=== PATIENT | female | born 1990 | race African-American/Black ===

== ENCOUNTER → 2019-08-02 | Outpatient (CLI) | payer OTHER ==
--- NOTE | 2019-08-02 15:24 | REP ---
OB ULTRASOUND: Real-time sonographic evaluation of the gravid uterus performed. There is a single living intrauterine gestation with an estimated gestational age 34 weeks 0 days, EDC 09/13/2019. There are no prior studies for comparison. Biometry and Growth: BPD 79 mm = 31 weeks 5 days, 17th percentile HC 308 mm = 34 weeks 2 days, 55th percentile AC 297 mm = 33 weeks 5 days, 46th percentile FL 70 mm = 35 weeks 5 days, 75th percentile HC/AC ratio 1.03 within normal range of 0.95 to 1.13. Estimated weight 2356 grams, 49th percentile. SEEN/GROSSLY UNREMARKABLE Lateral ventricles Yes Posterior fossa No Upper lip Yes Four-chamber heart Yes LVOT Yes RVOT Yes Stomach Yes Cord insertion Yes Three vessel cord Yes Kidneys Yes Bladder Yes Spine No Cervical length: Closed and measures 2.4 cm in length. heart rate: 135 beats per minute. position: Vertex. Placenta: Anterior and grade 2 with no previa or abruption. Amniotic fluid: Within normal limits. HENNY 18.0 within normal range of 8.1 to 24.8. S/D ratio 2.47 within normal range of 2.0 to 3.0. RI: 0.59 within normal range of 0.59 to 0.75. Note is made of an anterior fibroid which measures approximately 6.2 x 3.4 x 6.8 cm. Unreviewed
== END ==
LOC: M RAD 12:32
PROVIDERS: ATTEND Advanced Practice Midwife
DX: O34.13 Maternal care for benign tumor of corpus uteri, third trimester (principal); Z3A.34 34 weeks gestation of pregnancy

== ENCOUNTER → 2019-08-02 | Outpatient (CLI) | payer OTHER ==
[2019-08-02 18:27] LABS: BASO % 0.2 % (0.0-1.0); EOS % 0.7 % (0.0-3.0); HEMATOCRIT 39.3 % (36.0-47.0); HEMOGLOBIN 12.9 g/dl (12.0-15.5); LYMPH # 1.2 10^3/uL (1.5-5.0); LYMPH % 20.2 % (24.0-44.0); MEAN CORPUSCULAR HEMOGLOBIN 30.1 pg (27.0-33.0); MEAN CORPUSCULAR HGB CONC 32.8 g/dl (32.0-36.5); MEAN CORPUSCULAR VOLUME 91.6 fl (80.0-96.0); MONO # 0.5 10^3/uL (0.0-0.8); MONO % 9.2 % (0.0-5.0); NEUTROPHILS % 69.2 % (36.0-66.0); PLATELET COUNT, AUTOMATED 153 10^3/uL (150-450); RED BLOOD COUNT 4.29 10^6/uL (4.00-5.40); WHITE BLOOD COUNT 5.7 10^3/uL (4.0-10.0)
[2019-08-03 13:12] LABS: HEPATITIS C VIRUS ABY INDEX 0.1 INDEX (<0.8); HIV 1&2 SCREEN CENTAUR NEGATIVE (NEGATIVE)
== END ==
LOC: M PLALAB 13:43
PROVIDERS: ATTEND Advanced Practice Midwife
DX: Z34.80 Encounter for supervision of other normal pregnancy, unspecified trimester (principal)

== ENCOUNTER → 2019-08-10 | Outpatient (REF) | payer OTHER | LOC: M SFHCWAGY 16:46 | PROVIDERS: ATTEND Advanced Practice Midwife | DX: Z34.93 Encounter for supervision of normal pregnancy, unspecified, third trimester (principal); Z3A.00 Weeks of gestation of pregnancy not specified ==

== ENCOUNTER 2019-09-08 12:10 | Inpatient (IN) | payer OTHER ==
[2019-09-08] VITALS (25 sets, daily range): BP systolic 100–137; BP diastolic 57–81
[~2019-09-08] VITALS: Ht 160 cm; Wt 79.4 kg
[2019-09-08] MEDS ORDERED: PRENTAB9 PO (12:19)
[2019-09-08 13:40] LABS: HEMATOCRIT 39.7 % (36.0-47.0); MEAN CORPUSCULAR HEMOGLOBIN 29.7 pg (27.0-33.0); MEAN CORPUSCULAR HGB CONC 32.7 g/dl (32.0-36.5); MEAN CORPUSCULAR VOLUME 90.6 fl (80.0-96.0); PLATELET COUNT, AUTOMATED 127 10^3/uL (150-450); RED BLOOD COUNT 4.38 10^6/uL (4.00-5.40); WHITE BLOOD COUNT 7.6 10^3/uL (4.0-10.0)
--- NOTE | 2019-09-08 14:46 | HPE ---
DATE OF ADMISSION: 09/08/2019 HISTORY: 29-year-old, (G) 1, para (P) 0 female, at 40-3/7 weeks gestation by last menstrual period (LMP) consistent with ultrasound presents with leakage of fluid at 10 a.m. on the day of admission. She continued to leak. She has mild contractions. She denies vaginal bleeding. There is good movement. COURSE: The patient's course was unremarkable. Received care in [place]. MEDICAL HISTORY: Noncontributory. SURGICAL HISTORY: 1. Ankle surgery. 2. Shoulder surgery. ALLERGIES: SHELLFISH. SOCIAL HISTORY: The patient is . She lives in [place]. She is from [place]. She denies cigarettes, alcohol or drug use. FAMILY HISTORY: Noncontributory. PHYSICAL EXAM: Blood pressure was 113/63, pulse 82. No apparent distress. Head and neck exam normal. Lungs clear. Heart regular rate and rhythm. Abdomen nontender and gravid. heart tones category 1. Contractions irregular, mild. Sterile vaginal exam grossly ruptured with clear fluid noted, 3 cm, 90% and -2, posterior soft vertex. Extremities nontender. LABS: GBS negative. HIV negative. Hepatitis C negative. ASSESSMENT: 29-year-old, 1, para 0 female, at 40-3/7 weeks gestation with spontaneous rupture of membranes in early labor. PLAN: The patient is admitted on 08/29/2019.
[2019-09-08] MEDS ORDERED: LR 1,000 ML IV SCH (15:52)
[2019-09-08] MEDS ORDERED: OXYTOCIN DRIP 30 UNITS in IV 1 EA IV SCH (16:00)
[2019-09-08] MEDS ORDERED: FENTANYL 2MCG/ML ROPIVACAINE 0.2% IN 0.9% NACL 100ML IVBAG As Ordered ONE (17:46)
[2019-09-08] MEDS ORDERED: EPIDURAL/PCA KEYS XX PRN (19:15)
[2019-09-08] MEDS ORDERED: FENTANYL/ROPIVACAINE/NACL BAG 100 ML EPIDURAL SCH (19:15)
[2019-09-08] MEDS ORDERED: EPIDURAL COMMENT XX SCH (19:15)
[2019-09-08] MEDS ORDERED: diphenhydrAMINE INJ 50MG/ML VIAL (J1200) IV PRN (19:15)
[2019-09-08] MEDS ORDERED: NALOXONE INJ 0.4 MG/1 ML VIAL (J2310) IV PRN (19:15)
[2019-09-08] MEDS ORDERED: ONDANSETRON 4MG/2ML VIAL (J2405) IV PRN (19:15)
[2019-09-08] MEDS ORDERED: LACTATED RINGER'S 1000 ML IV PRN (19:15)
[2019-09-08] MEDS ORDERED: REFRIGERATOR IV KEYS XX PRN (19:15)
[2019-09-08] MEDS ORDERED: ePHEDrine SULFATE 25 MG/5 ML(5MG/ML) SYRINGE IV PRN (19:15)
[2019-09-09] VITALS (15 sets, daily range): BP systolic 105–129; BP diastolic 56–72
[2019-09-09] MEDS ORDERED: ACETAMINOPHEN 500 MG TAB PO ONE (00:15)
[2019-09-09] MEDS ORDERED: ACETAMINOPHEN 500 MG TAB As Ordered ONE (00:21)
[2019-09-09] MEDS ORDERED: ceFAZolin 2 GM/D5W 50 ML IV BAG (J0690 PER 500MG) As Ordered ONE (04:14)
[2019-09-09] MEDS ORDERED: ceFAZolin SOD 2 GM in IV 1 EA IV ONE (04:15)
[2019-09-09] MEDS ORDERED: BICITRA 30ML SOLN UDC PO ONE (04:15)
[2019-09-09] MEDS ORDERED: OXYTOCIN 30 UNITS IN 0.9% NaCl 500ML IV BAG (J2590) As Ordered ONE ×2 (04:36→05:31)
[2019-09-09] MEDS ORDERED: LIDOCAINE 2% W/EPIN INJ 20ML **PRES FREE As Ordered ONE (04:36)
[2019-09-09] MEDS ORDERED: OXYC1TAB23 PO (04:53)
[2019-09-09] MEDS ORDERED: KETOROLAC 60 MG/2 ML VIAL (J1885) As Ordered ONE (05:14)
[2019-09-09] MEDS ORDERED: ONDANSETRON 4MG/2ML VIAL (J2405) As Ordered ONE (05:14)
[2019-09-09] MEDS ORDERED: MORPHINE PRES-FREE INJ 10 MG/10 ML VIAL (J2274) As Ordered ONE (05:14)
[2019-09-09] MEDS ORDERED: MEPERIDINE 50 MG/ML 1ML VIAL (J2175) As Ordered ONE (05:30)
[2019-09-09] MEDS ORDERED: NALOXONE INJ 0.4 MG/1 ML VIAL (J2310) IV PRN ×2 (05:45)
[2019-09-09] MEDS ORDERED: ONDANSETRON 4MG/2ML VIAL (J2405) IV PRN ×3 (05:45→06:30)
[2019-09-09] MEDS ORDERED: NALBUPHINE HCL 10 MG/ML AMP (J2300) IV PRN (05:45)
[2019-09-09] MEDS ORDERED: diphenhydrAMINE INJ 50MG/ML VIAL (J1200) IV PRN (05:45)
[2019-09-09] MEDS ORDERED: METOCLOPRAMIDE INJ 10MG/2ML VIAL (J2765) IV PRN ×2 (05:45→06:30)
[2019-09-09] MEDS ORDERED: UNASYN 3 GM VIAL As Ordered ONE (05:47)
[2019-09-09] MEDS ORDERED: LR 1,000 ML IV SCH ×2 (06:07→06:30)
[2019-09-09] MEDS ORDERED: OXYTOCIN DRIP 30 UNITS in IV 1 EA IV SCH (06:07)
[2019-09-09] MEDS ORDERED: RHOGAM 300 MCG (1500 IU) INJ (J2790) IM SCH (06:15)
[2019-09-09] MEDS ORDERED: DOCUSATE SODIUM 100 MG CAP PO PRN (06:15)
[2019-09-09] MEDS ORDERED: ONDANSETRON 4 MG TAB (S0181) PO PRN (06:15)
[2019-09-09] MEDS ORDERED: MEASLES,MUMPS,RUBELLA VACCINE INJ (MMR-II) (90707) SC SCH (06:15)
[2019-09-09] MEDS ORDERED: PERCOCET 5MG/325MG TAB PO PRN ×3 (06:15→06:30)
[2019-09-09] MEDS ORDERED: fentaNYL 100 MCG/2 ML INJECTION (J3010) IV PRN (06:30)
[2019-09-09] MEDS: PIPERACILLIN/TAZOBACTAM SOD 3.375 GM in D5W MINI-BAG PLUS 50 ML IV SCH ×3 (08:43→20:24)
[2019-09-09] MEDS: KETOROLAC 30 MG/ML VIAL (J1885) IV SCH ×3 (11:24→23:31)
[2019-09-09] MEDS: PRENATAL VITAMINS CHEWABLE TABLET PO SCH (11:24)
[2019-09-09] MEDS: SLF 3 ML SYR IV SCH ×2 (14:25→20:24)
[2019-09-09] MEDS: SLF 3 ML SYR IV PRN ×2 (17:38→17:45)
--- NOTE | 2019-09-09 17:57 | RO ---
DATE OF PROCEDURE: 09/09/2019 PREPROCEDURE DIAGNOSIS: 40 and 4/7 weeks gestation, arrest of descent. POSTPROCEDURE DIAGNOSIS: 40 and 4/7 weeks gestation, arrest of descent, uterine fibroid, chorioamnionitis. PROCEDURE: SURGEON: Michael Liang MD BLUEPRINT REPRODUCER: Maria Teresa Carlson MD ANESTHESIA: Epidural. ESTIMATED BLOOD LOSS: 800 mL. URINE OUTPUT: 100 mL. FINDINGS: 3380 gram, 7 pound 7 ounce female infant, scores 7 and 8 in the occiput posterior position. Normal fallopian tube and ovaries. 8 cm pedunculated anterior fundal uterine fibroid. Evidence of anaerobic infection due to strong odor coming from the wound and purulent appearing amniotic fluid. DESCRIPTION OF PROCEDURE: The patient was taken to the operating room where epidural anesthesia was adequate. She was prepped and draped in a sterile fashion in the supine position. A Henriquez catheter was already in place. A Pfannenstiel skin incision was made with a scalpel, carried through to the fascia, the fascia was nicked and extended. The fascia was dissected off the rectus muscles. The peritoneal cavity was entered. A bladder flap was created. A curvilinear incision was made in the lower uterine segment until meconium-stained fluid was noted. This was extended manually. The infant was delivered from the vertex position without difficulty. The cord was doubly clamped and cut. The infant was handing off to awaiting nurses. The placenta was expressed. The uterus was exteriorized and cleared of clots and debris. The uterine incision was closed with #0 Vicryl in a running locked fashion. A second imbricating layer of #0 Vicryl was placed. Attention was turned to an anterior pedunculated fibroid. Adhesions of the fibroid to the uterus were taken sharply, and a Cora clamp was used to cross-clamp the stalk of the fibroid. The fibroid was then excised in its entirety. The base of the fibroid was oversewn with #2-0 Vicryl in a running fashion. The uterus was placed back in the abdominal cavity. The peritoneum was closed with #2-0 Vicryl in a running fashion. The fascia was closed with #0 Vicryl in a running fashion. Deep layer was irrigated and closed with #0 Vicryl. The skin was closed with #4-0 Monocryl subcuticular sutures. Sponge, instrument, needle counts were correct.
[2019-09-10 02:00] VITALS: BP 109/54
[2019-09-10] MEDS: PIPERACILLIN/TAZOBACTAM SOD 3.375 GM in D5W MINI-BAG PLUS 50 ML IV SCH ×2 (02:10→07:58)
[2019-09-10 06:00] VITALS: BP 128/57
[2019-09-10] MEDS: SLF 3 ML SYR IV SCH ×3 (06:00→23:25)
[2019-09-10 06:55] LABS: HEMATOCRIT 29.4 % (36.0-47.0); MEAN CORPUSCULAR HEMOGLOBIN 29.8 pg (27.0-33.0); MEAN CORPUSCULAR HGB CONC 32.3 g/dl (32.0-36.5); MEAN CORPUSCULAR VOLUME 92.2 fl (80.0-96.0); RED BLOOD COUNT 3.19 10^6/uL (4.00-5.40); WHITE BLOOD COUNT 10.6 10^3/uL (4.0-10.0)
--- NOTE | 2019-09-10 07:10 | IPNPDOC ---
Text Note Date of Service The patient was seen on 09/10/19. NOTE post-op #1 patient is doing well. vital signs stable. tolerating oral intake. Ambulatory without difficulty. nipples are intact, patient is pumping; abdominal dressing has scant drainage; fundus firm, bleeding small; pt voiding without difficulty; no complaints. CBC pending. plan for discharge tomorrow URILE Blackburn agree with above. VS,Fishbone, I+O VS, Fishbone, I+O Vital Signs Date Time Temp Pulse Resp B/P (MAP) Pulse Ox O2 Delivery O2 Flow Rate FiO2 09/10/19 06:00 99.0 68 18 128/57 (80) 97 Room Air I&O- Last 24 Hours up to 6 AM 09/10/19 05:59 Intake Total 2590 ml Output Total 2350 ml Balance 240 ml Cristiana Rice CNM Sep 10, 2019 07:10
[2019-09-10 07:20] LABS: HEMOGLOBIN 9.5 g/dl (12.0-15.5); PLATELET COUNT, AUTOMATED 99 10^3/uL (150-450)
[2019-09-10] MEDS: PRENATAL VITAMINS CHEWABLE TABLET PO SCH (07:57)
[2019-09-10] MEDS: IBUPROFEN 800 MG TAB PO SCH ×3 (07:58→23:24)
[2019-09-10] MEDS ORDERED: INFLUENZA QUADRIVALENT PF VACCINE 0.5ML SYRINGE (90686) IM ONE (09:00)
[2019-09-10 10:00] VITALS: BP 110/47
[2019-09-10 15:03] VITALS: BP 107/53
[2019-09-10 18:01] VITALS: BP 105/52
[2019-09-10 22:00] VITALS: BP 118/58
[2019-09-11 06:00] VITALS: BP 104/52
[2019-09-11] MEDS: SLF 3 ML SYR IV SCH (06:00)
[2019-09-11] MEDS: PRENATAL VITAMINS CHEWABLE TABLET PO SCH (07:43)
[2019-09-11] MEDS: IBUPROFEN 800 MG TAB PO SCH (07:43)
[2019-09-11] MEDS ORDERED: IBUP80TA PO (09:20)
[2019-09-11] MEDS ORDERED: DOCU100C16 PO (09:20)
== END 2019-09-11 11:15 | disposition home or self-care (01) | DRG 771 ==
LOC: M LDO 12:10 → M LDI 12:37 → M OBS 09-09 12:53
PROVIDERS: ADMIT Specialist; ATTEND Specialist
PROC: 0UB90ZX Excision of Uterus, Open Approach, Diagnostic (ICD-10-PCS; 2019-09-09)
PROC: 10D00Z1 Extraction of Products of Conception, Low, Open Approach (ICD-10-PCS; principal; 2019-09-09 04:00)
DX: O48.0 Post-term pregnancy (principal); O41.1230 Chorioamnionitis, third trimester, not applicable or unspecified; Z37.0 Single live birth; Z3A.40 40 weeks gestation of pregnancy; O32.4XX0 Maternal care for high head at term, not applicable or unspecified; D25.9 Leiomyoma of uterus, unspecified; O34.13 Maternal care for benign tumor of corpus uteri, third trimester

== ENCOUNTER → 2023-02-11 | Outpatient (REF) ==
[~2023-02-11] MED LIST: DOCU100C16 PO; IBUP80TA PO; OXYC1TAB23 PO; PRENTAB9 PO
== END ==
LOC: M EMP 10:59
PROVIDERS: ATTEND Family Medicine
DX: Z20.822 Contact with and (suspected) exposure to COVID-19 (principal)

== ENCOUNTER → 2023-05-01 | Outpatient (REF) | payer OTHER | LOC: M PLALAB 14:36 | PROVIDERS: ATTEND Advanced Practice Midwife | DX: Z53.9 Procedure and treatment not carried out, unspecified reason (principal) ==

== ENCOUNTER → 2023-05-01 | Outpatient (CLI) | payer OTHER ==
[2023-05-01 17:44] LABS: HEMATOCRIT 36.1 % (36.0-47.0); HEMOGLOBIN 11.5 g/dl (12.0-15.5); MEAN CORPUSCULAR HEMOGLOBIN 27.8 pg (27.0-33.0); MEAN CORPUSCULAR HGB CONC 31.9 g/dl (32.0-36.5); MEAN CORPUSCULAR VOLUME 87.4 fl (80.0-96.0); PLATELET COUNT, AUTOMATED 232 10^3/uL (150-450); RED BLOOD COUNT 4.13 10^6/uL (4.00-5.40); WHITE BLOOD COUNT 4.3 10^3/uL (4.0-10.0)
[2023-05-01 18:33] LABS: HIV 1&2 SCREEN NEGATIVE (NEGATIVE)
[2023-05-01 18:41] LABS: HEPATITIS C VIRUS ABY INDEX 0.15 INDEX (<0.8)
[2023-05-01 19:20] LABS: GC DNA AMPLIFICATION NEGATIVE (NEGATIVE)
== END ==
LOC: M PLALAB 14:58
PROVIDERS: ATTEND Advanced Practice Midwife
DX: Z34.91 Encounter for supervision of normal pregnancy, unspecified, first trimester (principal)
CPT/HCPCS: 36415; 76801; 85027; 86762; 86780; 86803; 86850; 86900; 86901; 87086; 87340; 87389; 87810; 87850; G0463

== ENCOUNTER → 2023-06-23 | Outpatient (CLI) | payer OTHER | LOC: M WHC 13:59 | PROVIDERS: ATTEND Advanced Practice Midwife | DX: Z34.92 Encounter for supervision of normal pregnancy, unspecified, second trimester (principal); Z3A.19 19 weeks gestation of pregnancy ==

== ENCOUNTER → 2023-07-28 | Outpatient (CLI) | payer OTHER ==
[2023-07-28 17:34] LABS: HEMATOCRIT 30.2 % (36.0-47.0); HEMOGLOBIN 9.6 g/dl (12.0-15.5); MEAN CORPUSCULAR HEMOGLOBIN 28.1 pg (27.0-33.0); MEAN CORPUSCULAR HGB CONC 31.8 g/dl (32.0-36.5); MEAN CORPUSCULAR VOLUME 88.3 fl (80.0-96.0); PLATELET COUNT, AUTOMATED 206 10^3/uL (150-450); RED BLOOD COUNT 3.42 10^6/uL (4.00-5.40); WHITE BLOOD COUNT 7.3 10^3/uL (4.0-10.0)
== END ==
LOC: M PLALAB 14:32
PROVIDERS: ATTEND Obstetrics & Gynecology
DX: O34.211 Maternal care for low transverse scar from previous cesarean delivery (principal); Z3A.00 Weeks of gestation of pregnancy not specified

== ENCOUNTER → 2023-08-06 | Outpatient (CLI) | payer OTHER ==
[~2023-08-06] VITALS: Ht 160 cm; Wt 76.8 kg
[~2023-08-06] MED LIST changes: +IRON SUCROSE 500 MG in NS 250 ML OVER 4 HRS IV ONE
[2023-08-06 07:29] VITALS: BP 129/75; O2SAT 98
[2023-08-06 09:30] VITALS: BP 109/56; O2SAT 100
[2023-08-06 10:30] VITALS: BP 144/59; O2SAT 98
[2023-08-06 12:00] VITALS: BP 122/69; O2SAT 98
== END ==
LOC: M INFU 06:49
PROVIDERS: ATTEND Obstetrics & Gynecology
DX: D64.9 Anemia, unspecified (principal); Z91.013 Allergy to seafood
CPT/HCPCS: 96365; 96366; J1756

== ENCOUNTER → 2023-08-27 | Outpatient (REF) | payer OTHER ==
[~2023-08-27] MED LIST changes: -IRON SUCROSE 500 MG in NS 250 ML OVER 4 HRS IV ONE
[2023-08-27 17:30] LABS: CHLAMYDIA DNA AMPLIFICATION NEGATIVE (NEGATIVE); GC DNA AMPLIFICATION NEGATIVE (NEGATIVE)
== END ==
LOC: M SFHCWAGY 15:37
PROVIDERS: ATTEND Obstetrics & Gynecology
DX: O34.211 Maternal care for low transverse scar from previous cesarean delivery (principal)

== ENCOUNTER → 2023-09-30 | Outpatient (CLI) | payer OTHER ==
[2023-09-30 14:58] LABS: HEMATOCRIT 34.6 % (36.0-47.0); HEMOGLOBIN 10.8 g/dl (12.0-15.5); MEAN CORPUSCULAR HEMOGLOBIN 28.7 pg (27.0-33.0); MEAN CORPUSCULAR HGB CONC 31.2 g/dl (32.0-36.5); PLATELET COUNT, AUTOMATED 147 10^3/uL (150-450); RED BLOOD COUNT 3.76 10^6/uL (4.00-5.40); WHITE BLOOD COUNT 6.8 10^3/uL (4.0-10.0)
== END ==
LOC: M PLALAB 09:24
PROVIDERS: ATTEND Obstetrics & Gynecology
DX: O34.219 Maternal care for unspecified type scar from previous cesarean delivery (principal); Z3A.00 Weeks of gestation of pregnancy not specified

== ENCOUNTER → 2023-10-23 | Outpatient (REF) | payer OTHER | LOC: M PLALAB 10:49 | PROVIDERS: ATTEND Obstetrics & Gynecology | DX: Z34.90 Encounter for supervision of normal pregnancy, unspecified, unspecified trimester (principal) ==

== ENCOUNTER 2023-11-21 11:20 | Outpatient (CLI) | payer OTHER ==
[~2023-11-21] VITALS: Ht 160 cm; Wt 89.9 kg
[2023-11-21] MEDS ORDERED: HOME MED LIST COMPLETE! XX SCH (11:40)
[2023-11-21 11:43] VITALS: BP 128/75
== END 2023-11-21 12:45 | disposition home or self-care (01) ==
LOC: M LDO 11:20
PROVIDERS: ATTEND Obstetrics & Gynecology
DX: O47.1 False labor at or after 37 completed weeks of gestation (principal); O34.219 Maternal care for unspecified type scar from previous cesarean delivery; Z91.013 Allergy to seafood; Z3A.40 40 weeks gestation of pregnancy
CPT/HCPCS: 59025; G0463

== ENCOUNTER 2023-11-22 07:02 | Inpatient (IN) | payer OTHER ==
[2023-11-22] VITALS (38 sets, daily range): BP systolic 116–142; BP diastolic 60–100
[~2023-11-22] VITALS: Ht 160 cm; Wt 90.5 kg
[2023-11-22] MEDS ORDERED: LIDOCAINE 1% MDV 20ML VIAL INFIL PRN (08:55)
[2023-11-22] MEDS ORDERED: TRANEXAMIC ACID INJection 1,000 MG in NS 100 ML IV PRN (08:55)
[2023-11-22] MEDS ORDERED: METHYLERGONOVINE MALEATE 0.2MG/ML 1ML VIAL IM PRN (08:55)
[2023-11-22] MEDS ORDERED: OXYTOCIN DRIP 30 UNITS in IV 1 EA IV PRN (08:55)
[2023-11-22] MEDS ORDERED: CARBOPROST TROMETHAMINE 250 MCG/ML AMP IM PRN (08:55)
[2023-11-22 09:36] LABS: HEMOGLOBIN 12.6 g/dl (12.0-15.5); MEAN CORPUSCULAR HEMOGLOBIN 29.1 pg (27.0-33.0); MEAN CORPUSCULAR HGB CONC 33.2 g/dl (32.0-36.5); MEAN CORPUSCULAR VOLUME 87.8 fl (80.0-96.0); PLATELET COUNT, AUTOMATED 132 10^3/uL (150-450); RED BLOOD COUNT 4.33 10^6/uL (4.00-5.40); WHITE BLOOD COUNT 8.3 10^3/uL (4.0-10.0)
[2023-11-22] MEDS ORDERED: diphenhydrAMINE 50MG/ML VIAL IV PRN (10:05)
[2023-11-22] MEDS ORDERED: LR 500 ML IV PRN (10:05)
[2023-11-22] MEDS ORDERED: NALOXONE INJ 0.4MG/1ML VIAL IV PRN (10:05)
[2023-11-22] MEDS ORDERED: EPIDURAL/PCA KEYS XX PRN (10:05)
[2023-11-22] MEDS ORDERED: ONDANSETRON 4MG 2ML VIAL IV PRN (10:05)
[2023-11-22] MEDS ORDERED: ePHEDrine SULFATE 25 MG/5 ML(5MG/ML) SYRINGE IVP PRN (10:05)
[2023-11-22] MEDS ORDERED: FENTANYL 2MCG/ML ROPIVACAINE 0.2% IN 0.9% NACL 100ML IVBAG As Ordered ONE (10:06)
[2023-11-22] MEDS: FENTANYL/ROPIVACAINE/NACL BAG 100 ML EPIDURAL SCH (11:08)
[2023-11-22] MEDS: LR 1,000 ML IV SCH (11:09)
[2023-11-22] MEDS: OXYTOCIN DRIP 30 UNITS in IV 1 EA IV SCH (21:07)
[2023-11-23] VITALS (11 sets, daily range): BP systolic 102–133; BP diastolic 55–61; TEMP 99.1; O2SAT 95–99
[2023-11-23] MEDS: AZITHROMYCIN INJ 500 MG, VIAL MATE ADAPTER 1 EACH in NS 250 ML IV ONE
[2023-11-23] MEDS: ceFAZolin SOD 2 GM in IV 1 EA IV ONE (00:16)
[2023-11-23] MEDS: BICITRA 30ML SOLN UDC PO ONE (00:16)
[2023-11-23] MEDS ORDERED: LIDOCAINE 2% W/EPINEPHRINE 20ML VIAL **PRES FREE As Ordered ONE (00:32)
[2023-11-23] MEDS ORDERED: MORPHINE PRES-FREE INJ 10 MG/10 ML VIAL As Ordered ONE (00:32)
[2023-11-23] MEDS ORDERED: ONDANSETRON 4MG 2ML VIAL As Ordered ONE (00:32)
[2023-11-23] MEDS ORDERED: ACETAMINOPHEN 1000MG 100ML IV BAG As Ordered ONE (00:33)
[2023-11-23] MEDS ORDERED: KETOROLAC 60MG 2ML VIAL As Ordered ONE (00:35)
[2023-11-23] MEDS ORDERED: LIDOCAINE 1% MDV 20ML VIAL As Ordered ONE (00:36)
[2023-11-23] MEDS ORDERED: OXYTOCIN 30UNITS IN 0.9% NaCl 500ML IV BAG As Ordered ONE (00:38)
[2023-11-23 01:03] LABS: CORD GAS HCO3 A 20.5 MMOL/L; CORD GAS O2 SAT A 38.9 %; CORD GAS PCO2 A 53.9 mmHg; CORD GAS PH A 7.199 UNITS; CORD GAS PO2 A 21.1 mmHg; CORD GAS SBC A 16.8 MMOL/L; CORD GAS TCO2 A 22.2 MMOL/L
[2023-11-23 01:06] LABS: CORD GAS ABE V -5.7; CORD GAS HCO3 V 21.8 MMOL/L; CORD GAS O2 SAT V 75.2 %; CORD GAS PCO2 V 50.1 mmHg; CORD GAS PH V 7.257 UNITS; CORD GAS PO2 V 37.8 mmHg; CORD GAS SBC V 19.3 MMOL/L; CORD GAS TCO2 V 23.4 MMOL/L
[2023-11-23] MEDS ORDERED: MORPHINE 4 MG/ML 1ML VIAL IV PRN (01:40)
[2023-11-23] MEDS ORDERED: PERCOCET 5MG/325MG TAB PO PRN ×2 (01:40)
[2023-11-23] MEDS ORDERED: SIMETHICONE 80MG CHEW TAB PO PRN (01:40)
[2023-11-23] MEDS ORDERED: RHOGAM 300MCG (1500IU) INJ IM SCH (01:40)
[2023-11-23] MEDS ORDERED: ANUSOL HC CREAM 30GM TOP PRN (01:40)
[2023-11-23] MEDS ORDERED: CALCIUM CARBONATE 500 MG CHEW U/D PO PRN (01:40)
[2023-11-23] MEDS ORDERED: COLA100C5 PO (01:50)
[2023-11-23] MEDS ORDERED: PERCOCET PO (01:50)
[2023-11-23] MEDS: LACTATED RINGER'S 1000 ML IV STA (02:48)
[2023-11-23] MEDS: OXYTOCIN DRIP 30 UNITS in IV 1 EA IV SCH (02:49)
[2023-11-23] MEDS: LR 1,000 ML IV SCH (03:14)
[2023-11-23] MEDS: PRENATAL VITAMINS CHEWABLE TABLET PO SCH (07:44)
[2023-11-23] MEDS: KETOROLAC 30 MG/ML 1ML VIAL IV SCH (07:44)
[2023-11-23] MEDS: DOCUSATE SODIUM 100MG CAPSULE PO SCH (07:44)
[2023-11-24 02:00] VITALS: BP 122/58; O2SAT 97
[2023-11-24] MEDS: IBUPROFEN 800 MG TAB PO SCH (03:40)
[2023-11-24 06:00] VITALS: BP 118/64; O2SAT 98
[2023-11-24 07:11] LABS: HEMATOCRIT 31.2 % (36.0-47.0); MEAN CORPUSCULAR HEMOGLOBIN 29.5 pg (27.0-33.0); MEAN CORPUSCULAR HGB CONC 32.7 g/dl (32.0-36.5); MEAN CORPUSCULAR VOLUME 90.2 fl (80.0-96.0); PLATELET COUNT, AUTOMATED 120 10^3/uL (150-450); RED BLOOD COUNT 3.46 10^6/uL (4.00-5.40); WHITE BLOOD COUNT 10.2 10^3/uL (4.0-10.0)
[2023-11-24 07:17] LABS: HEMOGLOBIN 10.2 g/dl (12.0-15.5)
[2023-11-24 10:00] VITALS: BP 121/68; O2SAT 97
[2023-11-24 14:00] VITALS: BP 116/55; O2SAT 98
[2023-11-24] MEDS: ACETAMINOPHEN 500 MG TAB PO PRN (17:45)
[2023-11-24 18:00] VITALS: BP 121/56; O2SAT 97
[2023-11-24 22:00] VITALS: BP 118/52; O2SAT 98
[2023-11-25 02:00] VITALS: BP 119/59; O2SAT 97
[2023-11-25] MEDS: MEASLES,MUMPS,RUBELLA VACCINE INJ (MMR-II) SC.IMMUN ONE (06:57)
[2023-11-25 10:00] VITALS: BP 117/57; O2SAT 98
== END 2023-11-25 13:08 | disposition home or self-care (01) | DRG 773 ==
LOC: M LDO 07:02 → M LDI 09:00 → M OBS 11-23 03:30
PROVIDERS: ADMIT Obstetrics & Gynecology; ATTEND Obstetrics & Gynecology
PROC: 10D00Z1 Extraction of Products of Conception, Low, Open Approach (ICD-10-PCS; principal; 2023-11-23)
DX: O48.0 Post-term pregnancy (principal); Z3A.40 40 weeks gestation of pregnancy; O34.211 Maternal care for low transverse scar from previous cesarean delivery; Z91.013 Allergy to seafood; O62.0 Primary inadequate contractions